=== PATIENT | female | born 1975 | race Caucasian/White ===

== ENCOUNTER → 2020-04-22 | Outpatient (CLI) | payer BC ==
--- NOTE | 2020-04-22 14:15 | RAD ---
EXAM: Bilateral digital screening mammogram with tomosynthesis. HISTORY: 44-year-old female presents for baseline mammography. TECHNIQUE: Full-field digital craniocaudal and mediolateral oblique 2D and 3D tomosynthesis images of both breasts are obtained for evaluation. Computer aided detection was applied. COMPARISON: None. This is a baseline mammogram. BREAST PARENCHYMAL DENSITY: Level C - Heterogeneously dense. FINDINGS: There are nodular densities within the 6:30 position of the right breast at mid depth in th e 2:00 position of the right breast at anterior to mid depth. There is a dominant circumscribed nodul e within the anterior 3:00 position of the left breast. There are additional smaller circumscribed no dules within the left breast, primarily at the 9:00 position at mid depth. There is no architectural distortion or suspicious calcification. IMPRESSION: BI-RADS Category 0: Incomplete. Additional imaging needed. RECOMMENDATION: Further evaluated with a bilateral breast sonogram is recommended to assess nodular d ensities within both breasts described above, given the absence of prior studies to confirm stability . If your mammogram demonstrates that you have dense breast tissue, which could hide abnormalities, and if you have other risk factors for breast cancer that have been identified, you might benefit from s upplemental screening tests that may be suggested by your ordering physician. Dense breast tissue, i n and of itself, is a relatively common condition. This information is not provided to cause undue c oncern, but rather to raise your awareness and to promote discussion with your physician regarding th e presence of other risk factors, in addition to dense breast tissue. A report of your mammography re sults will be sent to you and your physician. You should contact your physician if you have any ques tions or concerns regarding this report. Mammography is a sensitive method for finding small breast cancers, but it does not detect them all a nd is not a substitute for careful clinical examination. A negative mammogram does not negate a clin ically suspicious finding and should not result in delay in biopsying a clinically suspicious abnorma lity. PQRS compliance statement - Patient information was entered into a reminder system with a target due date for the next mammogram. "Our facility is accredited by the [employer] Mammography [employer]." Electronically signed by: Mikala De Dios MD (04/22/2020 2:13 PM) [id number]
== END ==
LOC: MAMMO 11:00
PROVIDERS: ATTEND Physician Assistant Medical
DX: Z12.31 Encounter for screening mammogram for malignant neoplasm of breast (principal)
CPT/HCPCS: 77067

== ENCOUNTER → 2020-05-19 | Outpatient (CLI) | payer BC ==
--- NOTE | 2020-05-20 08:26 | RAD ---
DATE: 05/19/2020 EXAM: BREAST BILATERAL HISTORY: Recall from screening mammogram for bilateral nodular densities. COMPARISON: Screening mammogram 04/22/2020 FINDINGS: Focused ultrasound of the right and left breast were performed in the areas of concern. Left breast: At 3:00, 2 cm from the nipple, there is an anechoic simple cyst measuring 2.3 cm, correlating with the mammographic finding. At 9:00, 5 cm from nipple there is an anechoic simple cyst measuring 5 mm. No abnormal lymph nodes in the left axilla. In the right breast, there are multiple ovoid circumscribed nodules that are hypoechoic and also likely small cysts. Some of these have some internal echoes which could be due to debris or artifactual due to the small size of the cysts. The largest is at 6:00, 4 cm from nipple and measures 6 mm. Another at 2:00, 3 cm from the nipple measures 5 mm. The correlate with the mammographic abnormalities. IMPRESSION: Benign simple cysts in the left breast and probably benign small simple cysts or complicated cysts in the right breast. Recommend 6 month follow-up ultrasound of the right breast to ensure stability. BI-RADS CATEGORY: 3 PROBABLY BENIGN FINDING(S)-SHORT INTERVAL FOLLOW-UP SUGGESTED RECOMMENDED FOLLOW-UP: 6M 6 MONTH FOLLOW-UP
== END ==
LOC: MAMMO 13:06
PROVIDERS: ATTEND Physician Assistant Medical
DX: N60.02 Solitary cyst of left breast (principal); N63.10 Unspecified lump in the right breast, unspecified quadrant; R92.8 Other abnormal and inconclusive findings on diagnostic imaging of breast
CPT/HCPCS: 76641

== ENCOUNTER → 2021-02-08 | Outpatient (CLI) | payer SELFPAY ==
--- NOTE | 2021-02-08 13:51 | RAD ---
EXAM: Right breast sonogram. HISTORY: 44-year-old female presents for follow-up evaluation of findings within the right breast dem onstrated on a sonogram dated 05/19/2020. TECHNIQUE: Sonographic imaging of the right breast including all 4 quadrants and the retroareolar reg ion was performed. COMPARISON: 05/19/2020. FINDINGS: There is a 4 mm simple appearing cyst at the 2:00 position 3 cm from nipple. 4 mm cyst with internal debris at the 6:00 position 4 cm. There is a similar-appearing 4 mm cyst with internal debr is at the 8:00 position 5 cm from the nipple. There are ectatic ducts within the cerebral aspect of t he right breast. There are benign axillary lymph nodes. There is no suspicious sonographic lesion. IMPRESSION: 1. Small benign simple and complicated cysts within the right breast and ductal ectasia within the cerda bareolar aspect of the right breast. There is no new suspicious sonographic finding. 2. BI-RADS Category 2: Benign finding(s). The patient will be due for bilateral screening mammography in 3 months according to a previously established mammography interval. Electronically signed by: Mikala De Dios MD (02/08/2021 1:49 PM) [id number]
== END ==
LOC: US 13:09
PROVIDERS: ATTEND Physician Assistant Medical
DX: N60.01 Solitary cyst of right breast (principal); N60.41 Mammary duct ectasia of right breast; R92.8 Other abnormal and inconclusive findings on diagnostic imaging of breast; R92.2 Inconclusive mammogram
CPT/HCPCS: 76641